=== PATIENT | female | born 1960 | race Caucasian/White ===

== ENCOUNTER 2023-11-08 13:19 | Outpatient (CLI) | payer OTHER, SELFPAY ==
--- NOTE | 2023-11-08 13:45 | MR_ITS ---
WS: [id number] MRI HEAD WITHOUT CONTRAST TECHNIQUE: Sagittal T1, T2 axial, T2 axial FLAIR, axial and coronal T1 images, axial susceptibility w eighted imaging, axial diffusion weighted images, and coronal T2 images were obtained. CLINICAL INFORMATION: G30.9 - Alzheimer's disease, unspecified COMPARISON: None. FINDINGS: No evidence of restricted diffusion to suggest acute ischemia. Ventricular system and basal cisterns are patent. Mild small vessel changes. Moderate parenchymal volume loss. Normal posterior fossa. Norm al vascular flow voids at the skull base. No extra-axial fluid collections. No evidence of mass or ma ss effect. Paranasal sinuses and mastoid air cells are well aerated. No hemosiderin on the susceptibly weighted images. Normal optic chiasm and pituitary infundibulum. Mi ld symmetric atrophy temporal lobes and hippocampal formations. MR/MR head wo con* [id number] IMPRESSION: 1. No evidence of restricted diffusion to suggest acute ischemia. 2. Mild small vessel changes with mild parenchymal volume loss 3. Parenchymal volume loss slightly more prominent in the frontal and temporal lobes. 4. No hemosiderin on the susceptibly weighted images. 5. No other acute findings.
== END 2023-11-08 13:20 | disposition home or self-care (01) ==
LOC: RAD 13:20
PROVIDERS: PCP Nurse Practitioner; Visit Provider Specialist
DX: G30.9 Alzheimer's disease, unspecified (principal); F02.80 Dementia in other diseases classified elsewhere, unspecified severity, without behavioral disturbance, psychotic disturbance, mood disturbance, and anxiety
CPT/HCPCS: 70551

== ENCOUNTER → 2023-11-27 14:26 | Outpatient (BNVA) | payer MEDICARE, SELFPAY | PROVIDERS: PCP Nurse Practitioner; Visit Provider Specialist | DX: R29.90 Unspecified symptoms and signs involving the nervous system (principal); G30.9 Alzheimer's disease, unspecified; F02.80 Dementia in other diseases classified elsewhere, unspecified severity, without behavioral disturbance, psychotic disturbance, mood disturbance, and anxiety; H53.2 Diplopia | CPT/HCPCS: 83516; 83519; 96116; 99214; 99215 ==

== ENCOUNTER → 2024-02-05 08:36 | Outpatient (BNVA) | payer MEDICARE, OTHER, SELFPAY | PROVIDERS: PCP Nurse Practitioner; Visit Provider Specialist | DX: R29.90 Unspecified symptoms and signs involving the nervous system (principal); G30.9 Alzheimer's disease, unspecified; F02.80 Dementia in other diseases classified elsewhere, unspecified severity, without behavioral disturbance, psychotic disturbance, mood disturbance, and anxiety; H53.2 Diplopia | CPT/HCPCS: 36415; 84439; 84443; 99214 ==

== ENCOUNTER → 2024-04-10 11:15 | Outpatient (BNVA) | payer MEDICARE, OTHER, SELFPAY | PROVIDERS: PCP Nurse Practitioner; Visit Provider Specialist | DX: R29.90 Unspecified symptoms and signs involving the nervous system (principal); G30.9 Alzheimer's disease, unspecified; F02.80 Dementia in other diseases classified elsewhere, unspecified severity, without behavioral disturbance, psychotic disturbance, mood disturbance, and anxiety; H53.2 Diplopia; R03.0 Elevated blood-pressure reading, without diagnosis of hypertension | CPT/HCPCS: 36415; 82542; 99214 ==

== ENCOUNTER 2024-05-23 11:00 | Oncology outpatient (recurring) (ONCR) | payer MEDICARE, OTHER, SELFPAY ==
[2024-05-08 09:06] VITALS: BP 130/60; PULSE 60; RESP 18; TEMP 36.6; O2SAT 98
[2024-05-08] MEDS: sodium chloride 0.9% 250 ML 75 ML IV (09:30)
[2024-05-08] MEDS: acetaminophen 500 mg Tablet 1000 MG PO (09:31)
[2024-05-08] MEDS: diphenhydrAMINE 50 mg/mL SDV 1mL IVP (09:35)
[2024-05-08] MEDS: donanemab-azbt 700 MG in sodium chloride 0.9% 50 ML 180 MG IV (09:53)
[2024-05-08 10:30] VITALS: BP 124/78; PULSE 67; RESP 18; TEMP 36.6; O2SAT 98
--- NOTE | 2024-05-23 11:00 | MR_ITS ---
WS: [id number] MRI HEAD WITHOUT CONTRAST TECHNIQUE: Sagittal T1, T2 axial, T2 axial FLAIR, axial and coronal T1 images, axial susceptibility weighted imaging, axial diffusion weighted images, and coronal T2 images were obtained. CLINICAL INFORMATION: G30.9 - Alzheimer's disease, unspecified COMPARISON: MRI 11/08/2023 FINDINGS: No evidence of restricted diffusion to suggest acute ischemia. Ventricular system and basal cisterns are patent. Mild small vessel changes with mild parenchymal volume loss. Parenchymal volume loss slightly more prominent in the frontal and temporal lobes stable compared to previous. Normal posterior fossa. Normal vascular flow voids at the skull base. No extra- axial fluid collections. No evidence of mass or mass effect. Mild mucosal thickening in the ethmoid air cells. Mastoid air cells are well aerated. No hemosiderin on the susceptibly weighted images. Normal optic chiasm and pituitary infundibulum. No other suspicious findings. MR/MR head wo con* [id number] IMPRESSION: 1. No remarkable changes compared to 11/08/2023. 2. Mild small vessel changes with mild parenchymal volume loss. 3. No hemosiderin on susceptibility-weighted images. 4. No restricted diffusion to suggest acute ischemia.
== END 2024-05-30 23:59 | disposition home or self-care (01) ==
LOC: RAD 05-24 → ONCMED 05-26 09:11
PROVIDERS: PCP Nurse Practitioner; Visit Provider Specialist
DX: G30.9 Alzheimer's disease, unspecified; I25.10 Atherosclerotic heart disease of native coronary artery without angina pectoris; Z53.9 Procedure and treatment not carried out, unspecified reason
CPT/HCPCS: 70551; 96375; 96413; 99214; J0175; J1200; J7050

== ENCOUNTER 2024-06-20 11:00 | Oncology outpatient (recurring) (ONCR) | payer MEDICARE, OTHER, SELFPAY ==
[2024-06-05 10:11] VITALS: BP 134/83; PULSE 54; TEMP 36.3; O2SAT 96
[2024-06-05] MEDS: sodium chloride 0.9% 250 ML 75 ML IV (10:29)
[2024-06-05] MEDS: acetaminophen 500 mg Tablet 1000 MG PO (10:29)
[2024-06-05] MEDS: diphenhydrAMINE 50 mg/mL SDV 1mL IVP (10:30)
[2024-06-05] MEDS: donanemab-azbt 700 MG in sodium chloride 0.9% 50 ML 180 MG IV (11:30)
[2024-06-05 12:04] VITALS: BP 123/70; PULSE 52; RESP 16; TEMP 36.9; O2SAT 96
--- NOTE | 2024-06-20 11:00 | MR_ITS ---
WS: [email or web address] MRI HEAD WITHOUT CONTRAST TECHNIQUE: Sagittal T1, T2 axial, T2 axial FLAIR, axial and coronal T1 images, axial susceptibility weighted imaging, axial diffusion weighted images, and coronal T2 images were obtained. CLINICAL INFORMATION: G30.9 - Alzheimer's disease, unspecified COMPARISON: MRI 05/23/2024 FINDINGS: No evidence of restricted diffusion to suggest acute ischemia. Ventricular system and basal cisterns are patent. Mild small vessel changes with mild parenchymal volume loss appears stable. Parenchymal volume loss slightly more prominent in the frontal and temporal lobes stable compared to the prior studies Normal posterior fossa. Normal vascular flow voids at the skull base. No extra- axial fluid collections. No evidence of mass or mass effect. Paranasal sinuses and mastoid air cells are well aerated. Normal posterior nasopharynx. Normal optic chiasm and pituitary infundibulum. No hemosiderin on susceptibly weighted images. MR/MR head wo con* [id number] IMPRESSION: 1. No evidence of restricted diffusion to suggest acute ischemia. 2. Mild small vessel changes with mild parenchymal volume loss similar to prev ious. 3. No hemosiderin on susceptibility-weighted images. Mild symmetric atrophy te mporal lobes and hippocampal formations similar to previous. 4. No significant herbal changes.
== END 2024-06-30 23:59 | disposition home or self-care (01) ==
PROVIDERS: PCP Nurse Practitioner; Visit Provider Specialist
DX: Z53.9 Procedure and treatment not carried out, unspecified reason (principal); G30.9 Alzheimer's disease, unspecified; F02.80 Dementia in other diseases classified elsewhere, unspecified severity, without behavioral disturbance, psychotic disturbance, mood disturbance, and anxiety; G31.89 Other specified degenerative diseases of nervous system
CPT/HCPCS: 70551; 96365; 96375; 99214; J0175; J1200; J7050; J9999

== ENCOUNTER → 2024-07-11 12:20 | Outpatient (BNVA) | payer MEDICARE, OTHER, SELFPAY | PROVIDERS: PCP Nurse Practitioner; Visit Provider Specialist | DX: G30.9 Alzheimer's disease, unspecified (principal); F02.80 Dementia in other diseases classified elsewhere, unspecified severity, without behavioral disturbance, psychotic disturbance, mood disturbance, and anxiety | CPT/HCPCS: 99213 ==

== ENCOUNTER 2024-07-25 11:00 | Oncology outpatient (recurring) (ONCR) | payer MEDICARE, SELFPAY ==
[2024-07-03] MEDS: sodium chloride 0.9% 250 ML 75 ML IV (09:44)
[2024-07-03] MEDS: acetaminophen 500 mg Tablet 1000 MG PO (09:46)
[2024-07-03] MEDS: diphenhydrAMINE 50 mg/mL SDV 1mL IVP (09:49)
[2024-07-03 10:05] VITALS: BP 124/70; PULSE 52; RESP 16; TEMP 36.6; O2SAT 96
[2024-07-03] MEDS: donanemab-azbt 700 MG in sodium chloride 0.9% 50 ML 180 MG IV (10:28)
[2024-07-03 11:05] VITALS: BP 126/83; PULSE 68; RESP 16; TEMP 36.6; O2SAT 96
--- NOTE | 2024-07-25 11:00 | MR_ITS ---
WS: [id number] MRI BRAIN WITHOUT CONTRAST HISTORY: G30.9 - Alzheimer's disease, unspecified COMPARISON: 06/20/2024, 11/08/2023 TECHNIQUE: Diffusion imaging, multiplanar T1, T2 and FLAIR imaging obtained. No evidence for acute infarct or hemorrhage. Osborne-white matter differentiation is normal. Mild small vessel disease and volume loss. Atrophy is slightly greater involving the frontal and temporal lobes. No interval change. Ventricles and extra-axial spaces are normal. No inferior displacement of cerebellar tonsils. The sella turcica and pituitary gland are unremarkable. Dural venous sinuses and [place] demonstrate no abnormality on this unenhanced studies. Paranasal sinuses: Clear. Mastoid air cells: Normal. Calvarium and scalp: Intact. MR/MR head wo con* [id number] IMPRESSION: 1. Stable MRI brain since 05/23/2024. 2. No acute infarct or hemorrhage. 3. Mild volume loss and small vessel disease. 4. No acute interval change.
== END 2024-07-30 23:59 | disposition home or self-care (01) ==
LOC: RAD 07-26 00:01 → ONCMED 07-28 09:48
PROVIDERS: PCP Nurse Practitioner; Visit Provider Specialist
DX: Z53.9 Procedure and treatment not carried out, unspecified reason; G30.9 Alzheimer's disease, unspecified; F02.80 Dementia in other diseases classified elsewhere, unspecified severity, without behavioral disturbance, psychotic disturbance, mood disturbance, and anxiety; I25.85 Chronic coronary microvascular dysfunction
CPT/HCPCS: 70551; 96365; 96375; J0175; J1200; J7050; J9999

== ENCOUNTER 2024-08-28 09:30 | Oncology outpatient (recurring) (ONCR) | payer MEDICARE, SELFPAY ==
[2024-07-31 09:53] VITALS: BP 109/66; PULSE 62; RESP 16; TEMP 36.6; O2SAT 99
--- NOTE | 2024-07-31 10:01 | PC.NURSE ---
Patient refused full dose of benadryl
[2024-07-31] MEDS: sodium chloride 0.9% 250 ML 75 ML IV (10:10)
[2024-07-31] MEDS: acetaminophen 500 mg Tablet 1000 MG PO (10:11)
[2024-07-31] MEDS: diphenhydrAMINE 50 mg/mL SDV 1mL IVP (10:11)
[2024-07-31] MEDS: donanemab-azbt 1,400 MG in sodium chloride 0.9% (100 ml) 100 ML 360 MG IV (11:06)
[2024-07-31 11:53] VITALS: BP 107/65; PULSE 48
[2024-08-28] MEDS: sodium chloride 0.9% 250 ML 75 ML IV (10:11)
[2024-08-28] MEDS: acetaminophen 500 mg Tablet 1000 MG PO (10:11)
[2024-08-28] MEDS: diphenhydrAMINE 50 mg/mL SDV 1mL IVP (10:12)
[2024-08-28] MEDS: donanemab-azbt 1,400 MG in sodium chloride 0.9% (100 ml) 100 ML 360 MG IV (10:59)
[2024-08-28 12:11] VITALS: BP 113/68; PULSE 50; RESP 16; TEMP 36.8; O2SAT 95
== END 2024-08-30 23:59 | disposition home or self-care (01) ==
PROVIDERS: PCP Nurse Practitioner; Visit Provider Specialist
DX: Z53.9 Procedure and treatment not carried out, unspecified reason; G30.9 Alzheimer's disease, unspecified; F02.80 Dementia in other diseases classified elsewhere, unspecified severity, without behavioral disturbance, psychotic disturbance, mood disturbance, and anxiety; Z79.899 Other long term (current) drug therapy
CPT/HCPCS: 96365; 96375; 96413; 99213; 99214; J0175; J1200; J7050; J9999

== ENCOUNTER 2024-09-25 09:21 | Oncology outpatient (recurring) (ONCR) | payer MEDICARE, OTHER, SELFPAY ==
[2024-09-25 09:45] VITALS: BP 108/71; PULSE 60; RESP 16; TEMP 35.9; O2SAT 99
[2024-09-25] MEDS: acetaminophen 500 mg Tablet 1000 MG PO (10:21)
[2024-09-25] MEDS: sodium chloride 0.9% 250 ML 75 ML IV (10:22)
[2024-09-25] MEDS: diphenhydrAMINE 50 mg/mL SDV 1mL IVP (10:27)
[2024-09-25] MEDS: donanemab-azbt 1,400 MG in sodium chloride 0.9% (100 ml) 100 ML 360 MG IV (10:44)
[2024-09-25 11:31] VITALS: BP 116/63; PULSE 44; RESP 16; TEMP 35.9; O2SAT 98
== END 2024-09-29 23:59 | disposition home or self-care (01) ==
PROVIDERS: PCP Nurse Practitioner; Visit Provider Specialist
DX: G30.9 Alzheimer's disease, unspecified (principal); F02.80 Dementia in other diseases classified elsewhere, unspecified severity, without behavioral disturbance, psychotic disturbance, mood disturbance, and anxiety; Z79.899 Other long term (current) drug therapy
CPT/HCPCS: 96375; 96413; 99214; J0175; J1200; J7050; J9999

== ENCOUNTER 2024-10-10 11:20 | Oncology outpatient (recurring) (ONCR) | payer MEDICARE, OTHER, SELFPAY ==
--- NOTE | 2024-10-10 11:00 | MR_ITS ---
WS: [email or web address] MRI HEAD WITHOUT CONTRAST TECHNIQUE: Sagittal T1, T2 axial, T2 axial FLAIR, axial and coronal T1 images, axial susceptibility weighted imaging, axial diffusion weighted images, and coronal T2 images were obtained. CLINICAL INFORMATION: G30.9 - Alzheimer's disease, unspecified COMPARISON: 07/25/2024 FINDINGS: No evidence of restricted diffusion to suggest acute ischemia. Ventricular system and basal cisterns are patent. Since the prior examination interval development of edema with intra sulcal fluid in the LEFT frontal lobe. Trace amount of extra-axial fluid over the LEFT inferior frontal lobe. Mild associated localized edema with slight narrowing of the sulci. No midline shift or significant mass effect. No hydrocephalus. Possible tiny traces of hemosiderin in the LEFT frontal lobe but only visualized on the FLAIR imaging. This is not seen on susceptibility-weighted imaging and is equivocal. No punctate microhemorrhages. Normal posterior fossa. Normal vascular flow voids at the skull base. Paranasal sinuses and mastoid air cells are well aerated. Normal posterior nasopharynx. Normal optic chiasm and pituitary infundibulum. Stable atrophy involving the frontal and temporal lobes. No other significant changes. 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 Findings discussed with Kavita Menjivar MD at 10/10/2024 2:41 PM.
== END 2024-10-30 23:59 | disposition home or self-care (01) ==
PROVIDERS: PCP Nurse Practitioner; Visit Provider Specialist
DX: G30.9 Alzheimer's disease, unspecified (principal); F02.80 Dementia in other diseases classified elsewhere, unspecified severity, without behavioral disturbance, psychotic disturbance, mood disturbance, and anxiety; G93.6 Cerebral edema; G31.89 Other specified degenerative diseases of nervous system
CPT/HCPCS: 70551

== ENCOUNTER → 2024-10-23 08:07 | Outpatient (BNVA) | payer MEDICARE, OTHER, SELFPAY | PROVIDERS: PCP Nurse Practitioner; Visit Provider Specialist | DX: G30.9 Alzheimer's disease, unspecified (principal); F02.80 Dementia in other diseases classified elsewhere, unspecified severity, without behavioral disturbance, psychotic disturbance, mood disturbance, and anxiety; G93.6 Cerebral edema; R90.89 Other abnormal findings on diagnostic imaging of central nervous system | CPT/HCPCS: 99214 ==

== ENCOUNTER 2024-11-03 11:52 | Oncology outpatient (recurring) (ONCR) | payer MEDICARE, OTHER, SELFPAY ==
--- NOTE | 2024-11-03 07:23 | MR_ITS ---
WS: [email or web address] MRI HEAD WITHOUT CONTRAST TECHNIQUE: Sagittal T1, T2 axial, T2 axial FLAIR, axial and coronal T1 images, axial susceptibility weighted imaging, axial diffusion weighted images, and coronal T2 images were obtained. CLINICAL INFORMATION: ARIA/CEREBRAL EDEMA/ALZHEIMER'S DZ COMPARISON: 10/10/2024, 07/25/2024 FINDINGS: No evidence of restricted diffusion to suggest acute ischemia. Ventricular system and basal cisterns are patent. Previously described findings of amyloid related imaging abnormality in the LEFT frontal lobe has significantly improved and nearly resolved with a small amount of residual signal abnormality. Small amount of subcortical signal undermining the RIGHT frontal lobe laterally is more prominent compared to previous and new since 07/25/2024 and also may represent area versus small vessel change. No visualized hemosiderin today. No other significant changes. Normal posterior fossa. Normal vascular flow voids at the skull base. No extra-axial fluid collections. Paranasal sinuses and mastoid air cells are well aerated. MR/MR head wo con* [id number] IMPRESSION: 1. Previously described findings of ARIA have significantly improved in the LE FT frontal lobe with only a small amount of residual signal abnormality in the LEFT frontal lobe. No visualized hemosiderin 2. Small amount of subcortical signal abnormality in the RIGHT frontal lobe la terally that is new since 07/25/2024 and more apparent than 10/10/2024 and also m ay be associated with ARIA versus small vessel changes. 3. No other significant changes.
[2024-11-03 12:30] VITALS: BP 148/71; PULSE 54; RESP 18; TEMP 35.8; O2SAT 97
[2024-11-03] MEDS: diphenhydrAMINE 50 mg/mL SDV 1mL IVP (12:53)
[2024-11-03] MEDS: donanemab-azbt 1,400 MG in sodium chloride 0.9% (100 ml) 100 ML 360 MG IV (13:26)
[2024-11-03 14:07] VITALS: BP 127/77; PULSE 43; RESP 16; TEMP 35.8
== END 2024-11-30 23:59 | disposition home or self-care (01) ==
PROVIDERS: PCP Nurse Practitioner; Visit Provider Specialist
DX: G30.9 Alzheimer's disease, unspecified; F02.80 Dementia in other diseases classified elsewhere, unspecified severity, without behavioral disturbance, psychotic disturbance, mood disturbance, and anxiety; R90.89 Other abnormal findings on diagnostic imaging of central nervous system; G93.6 Cerebral edema; G31.89 Other specified degenerative diseases of nervous system; R93.0 Abnormal findings on diagnostic imaging of skull and head, not elsewhere classified; Z79.899 Other long term (current) drug therapy; Z53.9 Procedure and treatment not carried out, unspecified reason
CPT/HCPCS: 70551; 96375; 96413; J0175; J1200; J7050; J9999

== ENCOUNTER 2024-12-30 09:30 | Oncology outpatient (recurring) (ONCR) | payer MEDICARE, OTHER, SELFPAY ==
[2024-12-02 09:39] VITALS: BP 125/79; PULSE 57; RESP 18; TEMP 36.4; O2SAT 98
[2024-12-02] MEDS: diphenhydrAMINE 50 mg/mL SDV 1mL IVP (09:47)
[2024-12-02] MEDS: donanemab-azbt 1,400 MG in sodium chloride 0.9% (100 ml) 100 ML 360 MG IV (10:21)
[2024-12-02 11:01] VITALS: BP 133/77; PULSE 58; RESP 17; TEMP 36.8; O2SAT 98
[2024-12-30] MEDS: diphenhydrAMINE 50 mg/mL SDV 1mL IVP (09:53)
[2024-12-30] MEDS: donanemab-azbt 1,400 MG in sodium chloride 0.9% (100 ml) 100 ML 360 MG IV (10:17)
[2024-12-30 10:59] VITALS: BP 135/78; PULSE 45; RESP 17; TEMP 36.3; O2SAT 99
== END 2024-12-30 23:59 | disposition home or self-care (01) ==
PROVIDERS: PCP Nurse Practitioner; Visit Provider Specialist
DX: Z53.9 Procedure and treatment not carried out, unspecified reason; G30.9 Alzheimer's disease, unspecified; F02.80 Dementia in other diseases classified elsewhere, unspecified severity, without behavioral disturbance, psychotic disturbance, mood disturbance, and anxiety; Z79.899 Other long term (current) drug therapy
CPT/HCPCS: 96365; 96375; 96413; J0175; J1200; J7050; J9999

== ENCOUNTER → 2025-01-07 14:48 | Outpatient (BNVA) | payer MEDICARE, OTHER, SELFPAY | PROVIDERS: PCP Nurse Practitioner; Visit Provider Specialist | DX: G30.9 Alzheimer's disease, unspecified (principal); F02.80 Dementia in other diseases classified elsewhere, unspecified severity, without behavioral disturbance, psychotic disturbance, mood disturbance, and anxiety; G93.6 Cerebral edema; R90.89 Other abnormal findings on diagnostic imaging of central nervous system | CPT/HCPCS: 99214 ==

== ENCOUNTER 2025-01-27 08:41 | Oncology outpatient (recurring) (ONCR) | payer MEDICARE, OTHER, SELFPAY ==
[2025-01-27 09:23] VITALS: BP 120/62; PULSE 61; RESP 16; TEMP 36.3; O2SAT 97
[2025-01-27] MEDS: diphenhydrAMINE 50 mg/mL SDV 1mL IVP (09:32)
[2025-01-27] MEDS: donanemab-azbt 1,400 MG in sodium chloride 0.9% (100 ml) 100 ML 360 MG IV (10:13)
[2025-01-27 11:02] VITALS: BP 120/71; PULSE 64; RESP 16; TEMP 36.4; O2SAT 98
== END 2025-01-30 23:59 | disposition home or self-care (01) ==
PROVIDERS: PCP Nurse Practitioner; Visit Provider Internal Medicine Medical Oncology
DX: Z00.6 Encounter for examination for normal comparison and control in clinical research program (principal); G30.9 Alzheimer's disease, unspecified; F02.80 Dementia in other diseases classified elsewhere, unspecified severity, without behavioral disturbance, psychotic disturbance, mood disturbance, and anxiety; Z79.899 Other long term (current) drug therapy
CPT/HCPCS: 96375; 96413; J0175; J1200; J7050; J9999

== ENCOUNTER 2025-02-24 08:50 | Oncology outpatient (recurring) (ONCR) | payer MEDICARE, OTHER, SELFPAY ==
[2025-02-24] MEDS: diphenhydrAMINE 50 mg/mL SDV 1mL IVP (09:41)
[2025-02-24] MEDS: donanemab-azbt 1,400 MG in sodium chloride 0.9% (100 ml) 100 ML 360 MG IV (10:08)
[2025-02-24 10:50] VITALS: BP 124/78; PULSE 84; RESP 17; TEMP 36.6; O2SAT 97
== END 2025-03-01 23:59 | disposition home or self-care (01) ==
PROVIDERS: PCP Nurse Practitioner; Visit Provider Internal Medicine Medical Oncology
DX: Z00.6 Encounter for examination for normal comparison and control in clinical research program (principal); G30.9 Alzheimer's disease, unspecified; F02.80 Dementia in other diseases classified elsewhere, unspecified severity, without behavioral disturbance, psychotic disturbance, mood disturbance, and anxiety; Z79.899 Other long term (current) drug therapy; Z53.9 Procedure and treatment not carried out, unspecified reason
CPT/HCPCS: 96365; 96375; J0175; J1200; J7050; J9999

== ENCOUNTER 2025-03-24 08:39 | Oncology outpatient (recurring) (ONCR) | payer MEDICARE, SELFPAY ==
[2025-03-24] MEDS: diphenhydrAMINE 50 mg/mL SDV 1mL IVP (09:11)
[2025-03-24 09:13] VITALS: BP 127/71; PULSE 60; RESP 16; TEMP 36.2; O2SAT 99
[2025-03-24] MEDS: donanemab-azbt 1,400 MG in sodium chloride 0.9% (100 ml) 100 ML 360 MG IV (09:53)
[2025-03-24 10:29] VITALS: BP 124/78; PULSE 54; RESP 16; TEMP 36.3; O2SAT 95
== END 2025-04-01 23:59 | disposition home or self-care (01) ==
LOC: ONCMED 08:39
PROVIDERS: PCP Nurse Practitioner; Visit Provider Internal Medicine Medical Oncology
DX: Z00.6 Encounter for examination for normal comparison and control in clinical research program (principal); G30.9 Alzheimer's disease, unspecified; F02.80 Dementia in other diseases classified elsewhere, unspecified severity, without behavioral disturbance, psychotic disturbance, mood disturbance, and anxiety; Z79.899 Other long term (current) drug therapy
CPT/HCPCS: 96375; 96413; J0175; J1200; J7050; J9999